=== PATIENT | female | born 1980 | race Caucasian/White ===

== ENCOUNTER → 2016-12-04 | Outpatient (REF) ==
[~2016-12-04] MED LIST: HYOMAX-SR0.375 MG PO; NEXIUM 40MG40 MG PEG; PRENATAL1 TA1 PO; SLOW RELEASE IR50 MG PO
== END ==
LOC: WSOH 08:00
DX: Z01.89 Encounter for other specified special examinations (principal)

== ENCOUNTER → 2017-03-07 | Outpatient (CLI) | payer OTHER | LOC: COL.LAB 10:33 | DX: K52.9 Noninfective gastroenteritis and colitis, unspecified (principal) ==

== ENCOUNTER → 2017-03-27 | Outpatient (REF) | LOC: WSOH 08:30 | DX: Z02.89 Encounter for other administrative examinations (principal) ==

== ENCOUNTER → 2017-05-10 | Outpatient (REF) | LOC: WSOH 16:30 | DX: Z02.89 Encounter for other administrative examinations (principal) ==

== ENCOUNTER → 2017-12-25 | Outpatient (CLI) | payer OTHER ==
[~2017-12-25] MED LIST changes: +PREVACID 30MG30 M1 PO
== END ==
LOC: COL.CARD 11:35
DX: R00.2 Palpitations (principal)

== ENCOUNTER → 2020-10-06 | Outpatient (CLI) | payer OTHER | LOC: MC.RAD 16:30 | DX: Z12.31 Encounter for screening mammogram for malignant neoplasm of breast (principal); N64.89 Other specified disorders of breast ==

== ENCOUNTER → 2020-10-14 | Outpatient (CLI) | payer OTHER | LOC: MC.RAD 09:59 | DX: N64.89 Other specified disorders of breast (principal) ==

== ENCOUNTER → 2020-12-19 | Outpatient (REF) | LOC: COL.LAB 14:07 | DX: Z20.822 Contact with and (suspected) exposure to COVID-19 (principal) ==

== ENCOUNTER → 2024-01-23 | Outpatient (CLI) | payer OTHER | LOC: MC.RAD 12:51 | DX: Z12.31 Encounter for screening mammogram for malignant neoplasm of breast (principal) ==